=== PATIENT | female | born 1995 | race African-American/Black ===

== ENCOUNTER 2017-08-31 18:19 | Inpatient (IN) | payer OTHER ==
[~2017-08-31] VITALS: Ht 182.9 cm; Wt 87.8 kg
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
[2017-08-31 21:59] VITALS: BP 118/79
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
[2017-08-31 22:07] VITALS: BP 118/79
[2017-09-01 08:02] VITALS: BP 112/72
[2017-09-01 12:01] VITALS: BP 137/78
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
--- NOTE | 2017-09-01 15:31 | History & Physical ---
General Information and HPI MD Statement: I have seen and personally examined MATT CANSECO and documented this H&P. The patient is a 22 year old F who presented with a patient stated chief complaint of []. History of Present Illness: Patient is a 22-year-old transgender who is seeking help due to depression and anxiety in relation to his gender orientation. Stressors include being misidentified as female at work instead of as a male. He had reported passive suicidal ideation and was Admitted to the inpatient psychiatric service for further management. Currently reports no medical complaints. Review of systems is as documented below. Allergies/Medications Allergies: Coded Allergies: No Known Allergies (08/31/17) Past History Travel History Traveled to [place] past 21 day No Medical History Psychiatric: depression Influenza Vaccine: 07/12/16 Surgical History Surgical History: none, Past Family/Social History Employment History Employment Employed Profession/Employer n/a Review of Systems Review of Systems Constitutional: Denies: chills, fever, weakness. EENTM: Denies: epistaxis. Cardiovascular: Denies: chest pain, orthopena, palpitations. Respiratory: Denies: cough, hemoptysis, short of breath. GI: Reports: constipation. Denies: abdominal pain, diarrhea. Genitourinary: Denies: dysuria. Musculoskeletal: Reports: no symptoms. Skin: Denies: rash. Neurological/Psychological: Denies: headache, tremors. Hematologic/Endocrine: Denies: polyuria, polydipsia. Exam & Diagnostic Data Last 24 Hrs of Vital Signs/I&O Vital Signs Date Time Temp Pulse Resp B/P B/P Pulse O2 O2 Flow FiO2 Mean Ox Delivery Rate 09/01 1201 86 137/78 09/01 0802 97.7 92 112/72 08/31 2207 97.0 82 16 118/79 08/31 2159 97.6 82 118/79 Intake & Output 09/01 1600 09/01 0800 09/01 0000 Intake Total Output Total Balance Patient 87.77 kg Weight Physical Exam General Appearance Alert, Oriented X3, Cooperative, No Acute Distress Skin No Rashes, No Breakdown HEENT Atraumatic, PERRLA, EOMI Neck Supple, +2 Carotid Pulse wo Bruit Cardiovascular Regular Rate, Normal S1, Normal S2, No Murmurs Lungs Clear to Auscultation, Normal Air Movement Abdomen Normal Bowel Sounds, Soft, No Tenderness Neurological Exam Findings: Normal Gait (CN 2-12 within norm) Cranial Nerves II through XII: Within normal limits. Extremities No Clubbing, No Cyanosis, No Edema, Normal Pulses, No Tenderness/ Swelling Vascular Normal Pulses, Pulses Symmetrical Assessment/Plan Assessment: 22-year-old was admitted to the inpatient psychiatric service with depression and reports of passive suicide ideation due to several stressors including being misidentified as a female rather than a male. Currently no active medical issues. Would recommend obtaining routine CBC and chemistry. Please recall the medical service if any abnormalities are noted or if otherwise needed. As Ranked By This Provider Problem List: 1. Depression Miscellaneous Miscellaneous Documentation Attending Case Discussed With: Jennifer MILLER,[place] Primary Care Physician: Patient Has No Primary Care Dr Patient sees these Specialists None. Level of Patient Care: DIANNE Mallory
[2017-09-01 16:00] VITALS: BP 112/66
[2017-09-01 19:59] VITALS: BP 122/68
[2017-09-02 07:51] VITALS: BP 119/68
[2017-09-02 12:23] VITALS: BP 115/65
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
[2017-09-02 16:14] VITALS: BP 141/62
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
[2017-09-02 19:42] VITALS: BP 135/70
[2017-09-03 07:47] VITALS: BP 136/91
[2017-09-03 12:15] VITALS: BP 128/69
--- NOTE | 2017-09-03 13:55 | SOCIAL WORKER PROG NOTE PSYCH ---
Social Work Progress Note Progress Note MATT CANSECO [id number] 1995 MATT CANSECO [id number] Pended Authorization # Client Authorization # Type of Request [id number] CONCURRENT Date of Admission/ Start of Services Requested From Submission Date 08/31/2017 09/03/2017 09/03/2017 Level of Service Type of Service Level of Care Type of Care INPATIENT/[facility]
--- NOTE | 2017-09-03 14:00 | CP SOUTH PROGRESS NOTE PSYCH ---
Psych (Inpt) Progress Note Progress Note The multidisciplinary treatment team discussed the patients treatment and progress. The multidisciplinary treatment team consisted of: Nursing Staff, Group Therapists, Activity Therapist, Social Work staff, and Psychiatrists Mental Status Examination: Kasandra was cooperative, normal psychomotor activity, interviewed with med student, normal speech, reported feeling much better today (not sad, not depressed, his affect was jovial, denied wishing, no active suicide thinking, intent, or plan, no homicidal ideation, denied hallucinations, he denied feeling paranoid, I could not elicit delusions, no difficulties with thought organization, good insight, good judgment, alert and oriented x4, cognition: grossly intact memory Function, Assessment: Kasandra is a 22-year-old male (transgender Female to male) who was admitted for "starting to unravel", worsening depression and anxiety & passive SI which seemed to become more developed which scared the patient. Diagnosis: PTSD Borderline Personality Disorder Unspecified anxiety Unspecified depression, Treatment Plan Update: Continue PRN trazodone, hydroxyzine, and melatonin Nursing care Social work Group and milieu therapy Psychiatrist to perform daily evaluations No regular psych meds for today
[2017-09-03 15:53] VITALS: BP 123/66
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
[2017-09-03 21:32] VITALS: BP 123/61
[2017-09-04 07:35] VITALS: BP 104/63
--- NOTE | 2017-09-04 11:42 | DISCHARGE SUMMARY REPORT-PSYCH ---
Visit Information Visit Dates/Diagnosis' Admission Date: 08/31/17 Discharge Date: 09/04/17 Reason for Admission: 22-year-old transgender female to male and black male who presented to the emergency room because of "I'm starting to unravel." Psy Discharge Primary Diag: General Psychiatric Hospital Course Significant Lab Findings: The patient had normal chemistry with only one minor abnormality being low HDL cholesterol Course Complications: No complications Consultations: The patient had a history and physical examination while he was on the inpatient psychiatric unit this was done by Dr. Mujica on 09/01/2017 there were no physical health issues identified as a focus of clinical attention. Allergies: Coded Allergies: No Known Allergies (08/31/17) Hospital Course/TX Response: The patient was admitted to Inpatient Psychiatry for further monitoring and risk assessment and safety evaluation. No regular psychotropic medications were ordered for this patient. On the unit the patient was observed to be in good spirits without any major evidence of disturbance in mood or any unreasonable amount of anxiety. The patient has had previous diagnoses in the past that included posttraumatic stress disorder and borderline personality disorder. However during his course of the stay on Inpatient Psychiatry there was no severe psychopathology identified or observed. The patient did very well on the unit with significant improvement without psychotropic medications. The patient participated in group therapy and meetings with the psychiatric social worker as well as nursing staff. He was calm and cooperative and collected. There was a family meeting over the phone with his significant other, whom he lives with in [facility]. Patient's condition upon discharge: The multidisciplinary treatment team (Nursing Staff, Group Therapists, Activity Therapist, Social Work staff, and Psychiatrist) discussed the patients treatment and progress. Mental Status Examination: Kasandra was calm and cooperative. He showed normal psychomotor activity, normal speech, and reported feeling very well and ready for discharge. He denied feeling sad, denied feeling depressed, and his affect was jovial. He denied wishing, no active suicide thinking, intent, or plan. No homicidal ideation, denied hallucinations, and he denied feeling paranoid, I could not elicit delusions, no difficulties with thought organization, good insight, good judgment, alert and oriented x4, cognition, grossly intact memory Assessment: Kasandra is a 22-year-old male (transgender Female to male) who was admitted for "starting to unravel", worsening depression and anxiety & passive SI. He showed significant improvement without medications. Diagnoses: PTSD Borderline Personality Disorder Unspecified anxiety Unspecified depression, Treatment Plan Update: Discharge Home Follow up with IOL-IOP Discharge HBIPS - Tobacco Use Treatment Offered Post DC Medications Offered: Not Applicable Post DC Tobacco Treatment Plan: Not Applicable - EtOH/Drug Use D/O Treatment Offered Post DC Medications Offered: NA-No EtOH/Drug Use D/O Post DC EtOH/SubAbuse [place] Plan: NA-No EtOH/Drug Use D/O Metabolic Screening - Screen if on a Neuroleptic Medication - Metabolic screening should include: - Blood Pressure, BMI, Glucose or Hgb A1c, & a - Lipid profile from within the past 365 days. Metabolic Screening (X) Not Applicable, patient not on a neuroleptic. OR () Patient on a neuroleptic(s) . Enter below results for Hemoglobin A1C, and lipid panel if obtained during the last 365 days. BMI: Blood Pressure: 127/94 Laboratory Results From [facility] EHR (If applicable): Discharge Instructions General Discharge Information Multiple Neuroleptics: ([X]) Not Applicable OR Document below three failed attempts at monotherapy, or a plan to taper to monotherapy, or augmentation of Clozapine. () Discharge Diet Regular Discharge Activity Normal DC Disposition: Home Referrals Ordered Referrals Provider Referral 09/10/17 For Groups: [[facility]] [facility] [phone] IOP Intake: 09/10/17 at 9:15am Please use the entrance at [address] [place] [address]. Keep right and look for Center Building. The [facility] is called "[facility]" and meets on Saturday, Saturday and from 1pm-4pm. Your intake appointment is on 09/10/17, at 9:15am. Provider Referral 09/11/17 For Groups: [[facility]] [facility] [address] [phone] Next group: Monday, September 11, 2017 at 4pm Copies To: DARLEEN
[2017-09-04 12:16] VITALS: BP 127/94
[2017-09-04 15:57] VITALS: BP 141/72
--- NOTE | 2017-09-04 17:38 | SOCIAL WORKER PROG NOTE PSYCH ---
Social Work Progress Note Progress Note This verse writer spoke with Marcelle at [facility] regarding their IOP program for young adults. She provided information on the [facility] program which focuses on young adults struggling with gender identity issues. Marcelle stated that the group meets on Mon, Wed and Thurs from 1-4pm. This verse writer reviewed information with the patient, who was agreeable and appeared to be interested. He stated that he would be able to attend the groups and would like to schedule an intake. Patient denied SI/HI/AH/VH. He identified a safety plan in which he, if feeling unsafe, would immediately "go to my best friend and also call mobile crisis." Patient stated that he has [facility] the [facility] and would feel comfortable doing so again if needed. In addition, patient was informed that he would be provided with crisis numbers and warm lines upon discharge, which he stated that he would utilize. He did not have any concerns about discharging today and expressed looking forward to the IOP at [facility]. Intake was scheduled for 09/10/17 at 9:15am. Marcelle stated that she would contact the patient with a reminder for this appointment, which patient approved of. She also asked that the patient be informed to utilize the IOL entrance at [address] [place] [address] in [place], [place], keep right and look for the Center Building. Patient was agreeable to this. 4:58pm This verse writer contacted [facility] and spoke with Suzie to schedule a discharge ride ( ref # [id number]). This ride was later cancelled at 5:27pm with Lu, as the patient found alternate transportation home from his grandfather. Faxed Referral(s) Referred To: [facility] Transition of Care Documents sent: Health Summary Faxed to: [facility] Fax #: [phone] Faxed by: Suhail Dunlap LCSW Date faxed: 09/04/17 Time Faxed: [phone]
== END 2017-09-04 18:35 | DRG 756 ==
LOC: CP SOUTH 21:28
PROVIDERS: Student in an Organized Health Care Education/Training Program
DX: F99 Mental disorder, not otherwise specified (principal)
CPT/HCPCS: 36415; 93005; 93010